=== PATIENT | female | born 1950 | race Two or more races ===

== ENCOUNTER 2017-01-21 02:29 | Inpatient (IN) | payer MEDICARE, MEDICAID ==
[~2017-01-21] VITALS: Ht 152.4 cm; Wt 79.4 kg
[2017-01-21 04:00] VITALS: BP 123/77
[2017-01-21] MEDS ORDERED: ONDANSETRON HCL/PF 4 MG/2 ML VIAL IVP PRN (04:00)
[2017-01-21] MEDS ORDERED: HYDROCODONE/APAP 5/325MG 1 EACH TABLET PO PRN (04:00)
[2017-01-21] MEDS ORDERED: FLUCONAZOLE IN NS 100 MG in PREMIX 1 EA IV SCH ×2 (04:00)
[2017-01-21] MEDS ORDERED: ZOLPIDEM TARTRATE 5 MG TABLET PO PRN (04:00)
[2017-01-21] MEDS ORDERED: ACETAMINOPHEN 325 MG TABLET PO PRN (04:00)
[2017-01-21] MEDS ORDERED: Z GUARD REMEDY 2 OZ OINT TP PRN (04:00)
--- NOTE | 2017-01-21 04:20 | NUR ---
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 IN STABLE CONDITION AT THIS TIME, BREATHING EVEN AND UNLABORED OXYGEN SATURATION 2 98% ROOM AIR , NO S/S OF ANY PAIN OR DISCOMFORT AT THIS TIME, UNDER THE MEDICAL SERVICES OF DR RIAN LEWIS, WITH ADMITTED DX OF SEPSIS, ACCOMPANIED BY SON, PATIENT PLACED IN BED AND BED BATH GIVEN, UPON ASSESSMENT POSITIVE BOWEL SOUND NOTED, AFEBRILE AT THIS TIME, NO EDEMA NOTED, WITH SALINE LOCK IN RIGHT AC, INTACT AND PATENT, AMBULATORY ABLE TO MOVE ALL EXTREMITIES, CONTINENT TO B&B, USES RESTROOM, STEADY GAIT NOTED, ALL NEED PROVIDED AND MEDS WILL BE ADMINISTER ORDERED, ORIENTED TO ROOM AND EQUIPMENT, BED LOCKED AND LOWEST POSITION,ORIENTED TO CALL LIGHT AND PLACE W/I REACH, WILL CONTINUE TO MONITOR CLOSELY. VS 123/77, 98.0, 18, 76, 98, 0/10.
[2017-01-21] MEDS ORDERED: MEROPENEM 1 G in IV NS 0.9% 100 ML IV SCH ×2 (05:00→07:26)
[2017-01-21] MEDS ORDERED: MEROPENEM 1 G VIAL IV ONE (05:15)
[2017-01-21] MEDS ORDERED: FLUCONAZOLE IN NS 100 ML IV ONE (05:19)
[2017-01-21] MEDS ORDERED: PRAM0.129 PO (05:55)
[2017-01-21] MEDS ORDERED: FAMO20TA8 PO (05:55)
[2017-01-21] MEDS ORDERED: MAGN133T PO (05:55)
[2017-01-21] MEDS ORDERED: AMLO5TAB2 PO (05:55)
[2017-01-21] MEDS ORDERED: BUPR200T PO (05:55)
[2017-01-21] MEDS ORDERED: ERGO500047 PO (05:55)
[2017-01-21] MEDS ORDERED: SODI15OR6 PO (05:55)
[2017-01-21] MEDS ORDERED: DULO60CA45 PO (05:55)
[2017-01-21] MEDS ORDERED: TACR1CAP PO (05:55)
[2017-01-21] MEDS ORDERED: TRAM50TA2 PO (05:55)
[2017-01-21] MEDS ORDERED: LEVO137T2 PO (05:55)
[2017-01-21] MEDS ORDERED: GABA600T2 PO (05:55)
[2017-01-21] MEDS ORDERED: FLUD0.1T PO (05:55)
[2017-01-21] MEDS ORDERED: VALA100026 PO (05:55)
[2017-01-21 06:25] LABS: BASOPHILS % (AUTO) 0.3 % (0.0-2.0); EOSINOPHILS % (AUTO) 0.1 % (0.0-6.0); HEMATOCRIT 37 % (33-45); HEMOGLOBIN 12.3 g/dL (11.5-14.8); LYMPHOCYTES # (AUTO) 0.8 /CMM (0.8-4.8); LYMPHOCYTES % (AUTO) 11.8 % (20.0-44.0); MEAN CORPUSCULAR HEMOGLOBIN 29 PG (26.0-33.0); MEAN CORPUSCULAR HGB CONC 34 g/dl (31.0-36.0); MEAN CORPUSCULAR VOLUME 86 fL (82-100); MONOCYTES # (AUTO) 0.5 /CMM (0.1-1.30); MONOCYTES % (AUTO) 7.8 % (2.0-12.0); NEUTROPHILS # (AUTO) 5.3 /CMM (1.8-8.9); PLATELET COUNT (AUTO) 132 /CMM (150-450); RDW COEFFICIENT OF VARIATION 15.2 (11.5-15.0); RED BLOOD CELL COUNT(AUTO) 4.24 MIL/uL (4.0-5.2); WHITE BLOOD COUNT (AUTO) 6.6 K/uL (4.3-11.0)
[2017-01-21 06:42] LABS: CALCIUM, SERUM 8.6 mg/dL (8.5-10.1); MAGNESIUM 1.6 mg/dL (1.8-2.4); PHOSPHORUS 4.2 mg/dL (2.5-4.9); POTASSIUM 4.2 mmol/L (3.5-5.1)
--- NOTE | 2017-01-21 07:05 | NUR ---
RN INITIAL NOTE PATIENT RECEIVED IN BED RESTING. AWAKE, ALERT AND ORIENTED. PRIMARILY PORTUGUESE SPEAKING. SON AT BEDSIDE. ABLE TO MAKE NEEDS KNOWN. NO S/S OF PAIN OR DISCOMFORT. DENIES PAIN AT THIS TIME. SINUS RHYTHM ON TELE MONITOR. RESPIRATIONS ARE EVEN AND UNLABORED. NO S/S OF RESPIRATORY DISTRESS OR SOB. SATING WELL ON ROOM AIR. SKIN IS WARM AND DRY TO TOUCH. IV SITE FLUSHED, PATENT. SAFETY PRECAUTIONS IMPLEMENTED, BED IN LOCKED, LOW POSITION WITH TWO SIDE RAILS UP. CALL LIGHT AND BELONGINGS WITHIN EASY REACH. WILL CONTINUE TO MONITOR.
[2017-01-21] MEDS ORDERED: FEE PK DOSING 1 MIN EA MC ONE (07:36)
[2017-01-21 08:00] VITALS: BP 139/78
[2017-01-21 08:04] VITALS: BP 139/78
[2017-01-21] MEDS: VANCOMYCIN 1 GM in IV D5W 250 ML IV SCH ×2 (08:44→20:08)
[2017-01-21] MEDS ORDERED: ONDANSETRON HCL/PF 4 MG/2 ML VIAL IV PRN (09:30)
[2017-01-21] MEDS ORDERED: TRAMADOL HCL 50 MG TABLET PO PRN (11:00)
[2017-01-21] MEDS ORDERED: SODIUM POLYSTYRENE SULFONATE 15 G/60 ML BOTTLE PO SCH (11:00)
[2017-01-21] MEDS: Magnesium 1GM/D5W 100ML PREMIX 100 ML IV SCH ×2 (11:33→12:46)
[2017-01-21 11:44] LABS: APPEARANCE,URINE CLEAR (CLEAR); BILIRUBIN,URINE NEGATIVE (NEGATIVE); BLOOD, URINE TRACE-INTA Ery/uL (NEGATIVE); COLOR,URINE YELLOW (YELLOW); KETONES,URINE NEGATIVE (NEGATIVE); LEUKOCYTE ESTERASE ,URINE TRACE (NEGATIVE); NITRITE, URINE NEGATIVE (NEGATIVE); PROTEIN,URINE NEGATIVE (NEGATIVE); UGLUCOSE TRACE mg/dL (NEGATIVE); UROBILINOGEN,URINE 0.2 EU/dL (0.2)
[2017-01-21 12:00] VITALS: BP_SYST 138; BP_DIAS 80; BP_DIAS 90
[2017-01-21] MEDS: GABAPENTIN 300 MG CAPSULE PO SCH ×2 (12:54→16:13)
[2017-01-21] MEDS: VALACYCLOVIR HCL 500 MG TABLET PO SCH ×2 (12:54→16:13)
[2017-01-21] MEDS: PRAMIPEXOLE DI-HCL 0.25 MG TABLET PO SCH ×2 (12:54→16:13)
[2017-01-21 13:48] LABS: BACTERIA,URINE Rare /HPF (None Seen); RBC,URINE 0-2 /HPF (0-2); SQUAMOUS EPITHELIAL CELL,UR Rare /HPF (None Seen)
[2017-01-21] MEDS: MEROPENEM 1 G in IV NS 0.9% 100 ML IV SCH ×2 (14:03→21:24)
[2017-01-21 16:00] VITALS: BP 137/85
[2017-01-21] MEDS ORDERED: IBUPROFEN 400 MG TABLET PO PRN (16:00)
[2017-01-21] MEDS: TACROLIMUS ANHYDROUS 1 MG CAPSULE PO SCH (16:13)
[2017-01-21] MEDS: buPROPion 100 MG TABLET PO SCH (16:13)
[2017-01-21] MEDS: MAG SULFATE PO SCH (18:29)
[2017-01-21] MEDS: AMINO ACIDS PO SCH (18:29)
--- NOTE | 2017-01-21 18:53 | NUR ---
RN CLOSING NOTE CARRIED OUT ALL MD ORDERS, ANTICIPATED PATIENTS NEEDS. KEPT PATIENT CLEAN AND DRY. SAFETY PRECAUTIONS IN PLACE AT ALL TIMES. I WILL GIVE REPORT TO PM RN FOR FUNMILAYO.
--- NOTE | 2017-01-21 19:20 | NUR ---
RN INITIAL NOTE RECEIVED PT IN NO ACUTE DISTRESS IN BED. PT IS A/O X 4 AND ABLE TO AMKE NEEDS KNOWN. PT IS ON RA AND TOLERATING WELL WITH O2 SAT @ 100%. PT IS ON TELE WITH SR ONTHE MONITOR. PT HAS RAC 20G THAT IS CLEAN DRY INTACT AND PATENT WITH NS @ 75ML/HR. BED IN LOW LOCK POSITION WITH RIALS UP X 2. CALL LIGHT WITHIN REACH AND ALL SAFEYT MEASURES ENSURED AND CARRIED OUT. WILL CONTINUE TO MONITOR PT.
[2017-01-21 20:00] VITALS: BP 100/62
[2017-01-22] VITALS (7 sets, daily range): BP systolic 118–139; BP diastolic 69–84
[2017-01-22] MEDS: IV NS 0.9% 1,000 ML IV PRN ×2 (03:00→20:10)
[2017-01-22] MEDS: MEROPENEM 1 G in IV NS 0.9% 100 ML IV SCH ×3 (04:04→21:27)
--- NOTE | 2017-01-22 06:44 | NUR ---
RN CLOSING NOTE PT REMAINS IN NO ACUTE DISTRESS IN BED. PT DID NOT HAVE ANY SIGNIFICANT CHANGE IN CONDITION DURING SHIFT. ALL NEEDS MET, ALL ORDERS CARRIED OUT. WILL ENDORSE CARE TO AM RN FOR CONTINUITY OF CARE.
--- NOTE | 2017-01-22 07:48 | NUR ---
RN Notes: Patient received in stable condition alert awake ox4. on room air, No breathing difficulty noted. denies pain/discomfort. safety measures observed. call light within reach. will continue to monitor.
[2017-01-22 07:53] LABS: BASOPHILS % (AUTO) 0.3 % (0.0-2.0); HEMATOCRIT 36 % (33-45); HEMOGLOBIN 12.3 g/dL (11.5-14.8); LYMPHOCYTES # (AUTO) 0.9 /CMM (0.8-4.8); LYMPHOCYTES % (AUTO) 19.4 % (20.0-44.0); MEAN CORPUSCULAR HEMOGLOBIN 29 PG (26.0-33.0); MEAN CORPUSCULAR HGB CONC 34 g/dl (31.0-36.0); MEAN CORPUSCULAR VOLUME 87 fL (82-100); MONOCYTES # (AUTO) 0.4 /CMM (0.1-1.30); MONOCYTES % (AUTO) 9.2 % (2.0-12.0); NEUTROPHILS # (AUTO) 3.2 /CMM (1.8-8.9); NEUTROPHILS % (AUTO) 70.1 % (43.0-81.0); PLATELET COUNT (AUTO) 143 /CMM (150-450); RDW COEFFICIENT OF VARIATION 15.2 (11.5-15.0); WHITE BLOOD COUNT (AUTO) 4.5 K/uL (4.3-11.0)
[2017-01-22 07:55] LABS: CALCIUM, SERUM 8.7 mg/dL (8.5-10.1); PHOSPHORUS 3.6 mg/dL (2.5-4.9)
[2017-01-22 07:59] LABS: THYROID STIMULATING HORMONE 0.648 uIU/mL (0.358-3.74)
--- NOTE | 2017-01-22 08:00 | NUR ---
RN AM NOTE PATIENT RECEIVED IN BED RESTING. AWAKE, ALERT AND ORIENTED. PRIMARILY WELSH SPEAKING. SON AT BEDSIDE. ON CONTACT ISOLATION PRECAUTIONS FOR SHINGLES HX. ABLE TO MAKE NEEDS KNOWN. NO S/S OF PAIN OR DISCOMFORT. DENIES PAIN AT THIS TIME. SINUS RHYTHM ON TELE MONITOR. RESPIRATIONS ARE EVEN AND UNLABORED. NO S/S OF RESPIRATORY DISTRESS OR SOB. SATING WELL ON ROOM AIR. SKIN IS WARM AND DRY TO TOUCH. IV SITE FLUSHED, PATENT. SAFETY PRECAUTIONS IMPLEMENTED, BED IN LOCKED, LOW POSITION WITH TWO SIDE RAILS UP. CALL LIGHT WITHIN EASY REACH. WILL CONTINUE TO MONITOR.
[2017-01-22] MEDS ORDERED: ERGOCALCIFEROL (VITAMIN D 2) 50,000 UNIT CAPSULE PO SCH (09:00)
[2017-01-22] MEDS: AMINO ACIDS PO SCH ×2 (09:14→18:21)
[2017-01-22] MEDS: TACROLIMUS ANHYDROUS 1 MG CAPSULE PO SCH ×2 (09:14→18:22)
[2017-01-22] MEDS: MAG SULFATE PO SCH ×2 (09:14→18:21)
[2017-01-22] MEDS: LEVOTHYROXINE SODIUM 137 MCG TABLET PO SCH (09:14)
[2017-01-22] MEDS: VANCOMYCIN 1 GM in IV D5W 250 ML IV SCH ×2 (09:14→20:10)
[2017-01-22] MEDS: DULOXETINE HCL 20 MG CAPSULE.DR PO SCH ×2 (09:15→18:22)
[2017-01-22] MEDS: GABAPENTIN 300 MG CAPSULE PO SCH ×3 (09:15→18:22)
[2017-01-22] MEDS: buPROPion 100 MG TABLET PO SCH ×2 (09:15→18:21)
[2017-01-22] MEDS: PRAMIPEXOLE DI-HCL 0.25 MG TABLET PO SCH ×3 (09:16→18:22)
[2017-01-22] MEDS: VALACYCLOVIR HCL 500 MG TABLET PO SCH ×3 (09:16→18:22)
[2017-01-22] MEDS: AMLODIPINE BESYLATE 5 MG TABLET PO SCH (09:16)
[2017-01-22] MEDS: FLUDROCORTISONE 0.1 MG TABLET PO SCH (09:16)
[2017-01-22] MEDS: FAMOTIDINE (20 MG) 20 MG TABLET PO SCH (09:40)
--- NOTE | 2017-01-22 18:00 | NUR ---
PT RESTING IN BED WITH SON AT BEDSIDE WITH NO C/O PAIN OR DISTRESS.CALL LIGHT PLACED WITHIN REACH.
--- NOTE | 2017-01-22 19:20 | NUR ---
RN INITIAL NOTE RECEIVED PT IN NO ACUTE DISTRESS IN BED. PT IS A/O X 4 AND ABLE TO MAKE NEEDS KNOWN. PT IS ON RA AND TOLERATING WELL WITH O2 SAT @ 100%. PT IS ON TELE WITH SR ON THE MONITOR. PT HAS RHAND 22G THAT IS CLEAN DRY INTACT AND PATENT WITH NS @ 75ML/HR. BED IN LOW LOCK POSITION WITH RIALS UP X 2. CALL LIGHT WITHIN REACH AND ALL SAFETY MEASURES ENSURED AND CARRIED OUT. WILL CONTINUE TO MONITOR PT.
--- NOTE | 2017-01-22 21:02 | NUR ---
Spoke with daughter Marylin, patient lives with her son Michele in a multi-level dwelling that has elevator access. Patient is ambulatory and independent with adl's. Son is patient [facility] provider. Current plan is to return home and son will provide ride. Addendum: 01/22/17 at 2102 by DANNY COX RN Amended: Links added.
[2017-01-23] VITALS: BP 124/79
[2017-01-23 04:00] VITALS: BP 147/91
[2017-01-23] MEDS: MEROPENEM 1 G in IV NS 0.9% 100 ML IV SCH ×2 (05:30→11:45)
[2017-01-23 06:56] LABS: CALCIUM, SERUM 9.2 mg/dL (8.5-10.1); CREATININE 1.1 mg/dL (0.6-1.3); POTASSIUM 4.4 mmol/L (3.5-5.1)
--- NOTE | 2017-01-23 07:05 | NUR ---
RN INITIAL NOTE PATIENT RECEIVED AWAKE, ALERT AND ORIENTED. ABLE TO MAKE NEEDS KNOWN. NO S/S OF PAIN OR DISCOMFORT. DENIES PAIN AT THIS TIME. RESPIRATIONS ARE EVEN AND UNLABORED. NO S/S OF RESPIRATORY DISTRESS OR SOB. SATING WELL ON ROOM AIR. SINUS RHYTHM ON TELE MONITOR. SKIN IS WARM AND DRY TO TOUCH. IV SITE FLUSHED, PATENT. SAFETY PRECAUTIONS IMPLEMENTED. BED IN LOCKED, LOW POSITION WITH TWO SIDE RAILS UP. CALL LIGHT AND BELONGINGS WITHIN EASY REACH. WILL CONTINUE TO MONITOR.
[2017-01-23 08:00] VITALS: BP 130/80
[2017-01-23] MEDS: VALACYCLOVIR HCL 500 MG TABLET PO SCH ×2 (08:14→12:53)
[2017-01-23] MEDS: TACROLIMUS ANHYDROUS 1 MG CAPSULE PO SCH (08:15)
[2017-01-23] MEDS: GABAPENTIN 300 MG CAPSULE PO SCH ×2 (08:15→12:53)
[2017-01-23] MEDS: LEVOTHYROXINE SODIUM 137 MCG TABLET PO SCH (08:15)
[2017-01-23] MEDS: buPROPion 100 MG TABLET PO SCH (08:15)
[2017-01-23] MEDS: AMLODIPINE BESYLATE 5 MG TABLET PO SCH (08:16)
[2017-01-23] MEDS: DULOXETINE HCL 20 MG CAPSULE.DR PO SCH (08:16)
[2017-01-23] MEDS: FAMOTIDINE (20 MG) 20 MG TABLET PO SCH (08:16)
[2017-01-23] MEDS: FLUDROCORTISONE 0.1 MG TABLET PO SCH (08:17)
[2017-01-23] MEDS: AMINO ACIDS PO SCH (08:17)
[2017-01-23] MEDS: MAG SULFATE PO SCH (08:17)
[2017-01-23] MEDS: PRAMIPEXOLE DI-HCL 0.25 MG TABLET PO SCH ×2 (08:17→12:53)
[2017-01-23] MEDS: VANCOMYCIN 1 GM in IV D5W 250 ML IV SCH (08:18)
[2017-01-23] MEDS ORDERED: LEVO500T15 PO (10:57)
[2017-01-23] MEDS ORDERED: Capsaicin 0.025% Cream TP (11:00)
[2017-01-23 12:00] VITALS: BP 121/78
[2017-01-23] MEDS ORDERED: CAPSAICIN 0.025% CREAM 56.6 GM TUBE TP SCH (12:00)
--- NOTE | 2017-01-23 14:00 | NUR ---
RN CLOSING NOTE PATIENT HAS DISCHARGE ORDERS. CALLED SON TO INFORM HIM. DAUGHTER WILL COME FROM [place] TO PICK HER UP. IV SITE DISCONTINUED. PICTURES TAKEN OF ABDOMEN.
[2017-01-24 11:18] LABS: *TACROLIMUS (FK506) 8.6 ng/mL (2.0-20.0)
== END 2017-01-23 16:06 | disposition home or self-care (01) | DRG 720 ==
LOC: TELE1 04:13 → MEDSG1 01-23 13:10
PROVIDERS: ADMIT Nurse Practitioner Acute Care; ATTEND Internal Medicine
DX: A41.9 Sepsis, unspecified organism (principal); N17.0 Acute kidney failure with tubular necrosis; Z94.4 Liver transplant status; E46 Unspecified protein-calorie malnutrition; Z94.0 Kidney transplant status; E83.42 Hypomagnesemia; D89.9 Disorder involving the immune mechanism, unspecified; E03.9 Hypothyroidism, unspecified; B02.29 Other postherpetic nervous system involvement; N39.0 Urinary tract infection, site not specified; K21.9 Gastro-esophageal reflux disease without esophagitis; I10 Essential (primary) hypertension; E66.9 Obesity, unspecified; F41.9 Anxiety disorder, unspecified; F32.9 Major depressive disorder, single episode, unspecified; K74.69 Other cirrhosis of liver; Z86.19 Personal history of other infectious and parasitic diseases; Z85.05 Personal history of malignant neoplasm of liver; Z92.3 Personal history of irradiation; Z68.34 Body mass index [BMI] 34.0-34.9, adult
CPT/HCPCS: 36415; 80048-TC; 80061-TC; 80197; 80202-TC; 81000-TC; 82746; 83735-TC; 83880; 84100-TC; 84443-TC; 85025-TC; 85652-TC; 87081-TC; 93307-TC; A4216; J1450; J2185; J3370; J3475; J7030; J7060; J7507; Z7610